=== PATIENT | male | born 1995 ===

== ENCOUNTER 2018-12-11 22:32 | Emergency (ER) | payer OTHER ==
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
[2018-12-11 22:47] VITALS: BP 126/76
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
[2018-12-12] MEDS ORDERED: XYLOCAINE 2% INFILTRATI STA (00:43)
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
[2018-12-12] MEDS ORDERED: PERCOCET 5/325 PO STA (00:54)
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
--- NOTE | 2018-12-12 01:30 | XRay Report ---
CERVICAL SPINE 3 VIEWS INDICATION: Right neck pain. COMPARISON: No relevant prior imaging study available. FINDINGS: VERTEBRAE: No acute fracture. Normal alignment. DISC SPACES: No significant abnormality. FACET JOINTS: No significant abnormality. SOFT TISSUES: No significant abnormality. ADDITIONAL FINDINGS: No additional significant findings. IMPRESSION: No acute findings. Signer Name: Jayson Clark MD Signed: 12/12/2018 1:25 AM Workstation Name: [id number]
== END 2018-12-12 04:35 | disposition home or self-care (01) ==
LOC: ED 22:32
DX: S81.012A Laceration without foreign body, left knee, initial encounter (principal); S00.03XA Contusion of scalp, initial encounter; R07.89 Other chest pain; M54.2 Cervicalgia; V49.59XA Passenger injured in collision with other motor vehicles in traffic accident, initial encounter; Y93.89 Activity, other specified; Y92.89 Other specified places as the place of occurrence of the external cause; Y99.8 Other external cause status
CPT/HCPCS: 70450; 71045; 72040